=== PATIENT | male | born 1935 | race Caucasian/White ===

== ENCOUNTER → 2019-08-05 | Outpatient (CLI) | payer MEDICARE | END | disposition home or self-care (01) | LOC: RAH 16:19 | PROVIDERS: ATTEND Physical Medicine & Rehabilitation | DX: S83.192A Other subluxation of left knee, initial encounter (principal); M17.12 Unilateral primary osteoarthritis, left knee; X58.XXXA Exposure to other specified factors, initial encounter; Y93.89 Activity, other specified; Y92.89 Other specified places as the place of occurrence of the external cause; Y99.8 Other external cause status | CPT/HCPCS: 73562 ==

== ENCOUNTER 2021-04-23 06:41 | Day surgery (SDC) | payer MEDICARE ==
[2021-04-19 14:40] LABS: BASOPHILS % (AUTO) 0.5 % (0.0-5.0); EOSINOPHILS % (AUTO) 3.9 % (0.0-8.0); HEMATOCRIT 41.1 % (42-54); LYMPHOCYTES % (AUTO) 32.5 % (21.0-51.0); MEAN CORPUSCULAR HEMOGLOBIN 30.8 pg (27.0-33.0); MEAN CORPUSCULAR HGB CONC 32.1 g/dL (32.0-36.0); NEUTROPHILS % (AUTO) 55.9 % (40.0-77.0); PLATELET COUNT (AUTO) 194 K/uL (130-400); RED BLOOD CELL COUNT(AUTO) 4.28 MIL/uL (4.50-6.20); RED CELL DISTRIBUTION WIDTH 13.9 % (11.0-15.5); WHITE BLOOD COUNT (AUTO) 9.1 K/uL (4.8-10.8)
[2021-04-19 14:52] LABS: POTASSIUM 4.6 mmol/L (3.5-5.1)
[2021-04-19 14:55] LABS: INR 1.03 (0.85-1.15); PROTHROMBIN TIME 11.2 SEC (9.6-11.6)
[2021-04-19 14:56] LABS: PARTIAL THROMBOPLASTIN TIME 29.8 SEC (26.3-35.5)
[~2021-04-23] VITALS: Ht 175.3 cm; Wt 81.6 kg
[2021-04-23] VITALS (15 sets, daily range): BP systolic 115–161; BP diastolic 55–104
[~2021-04-23 06:41] MED LIST: ESOM20CA31 PO; LACTATED RINGERS 1000ML 1,000 ML IV SCH; LEVO75CA5 PO; MELO-108 PO; NINT100C PO; OMEGA 3 PO; ROPIVICAINE 250MG+KETOROLAC 15MG+EPINEPHRINE 0.3+CLONIDINE 80 IV PRN; ROSU20TA31 PO; TRANEXAMIC ACID 3,000 MG in SODIUM CHLORIDE IRRIG SOLUTION 250 ML TP SCH; UBID50CA23 PO
[2021-04-23] MEDS ORDERED: TRANEXAMIC ACID 1000MG/10ML ONE (07:09)
[2021-04-23] MEDS ORDERED: PROPOFOL 10 MG/ML 20ML VIAL IV ONE (07:58)
[2021-04-23] MEDS ORDERED: SUCCINYLCHOLINE CHLORIDE 20 MG/ML 10 ML VIAL ONE ×2 (07:58→08:15)
[2021-04-23] MEDS ORDERED: LIDOCAINE PF 100MG/5ML (2%) SYRINGE 5ML ONE ×2 (07:58→08:15)
[2021-04-23] MEDS ORDERED: ROCURONIUM 10MG/1ML SYR 10 MG/ML ML ONE (07:58)
[2021-04-23] MEDS ORDERED: ROPIVACAINE 0.5% 5MG/ML 30ML IJ ONE (08:15)
[2021-04-23] MEDS: CEFAZOLIN SODIUM 1 GM VIAL IVP SCH ×2 (08:25→14:00)
[2021-04-23] MEDS ORDERED: GLYCOPYRROLATE 1 MG/5 ML SYRINGE ONE (08:34)
[2021-04-23] MEDS ORDERED: NEOSTIGMINE 5MG/5ML SYR IV ONE (10:33)
[2021-04-23] MEDS ORDERED: ONDANSETRON 4MG INJ ONE (10:36)
[2021-04-23] MEDS ORDERED: PHENYLEPHRINE HCL 10 MG/ML 1ML VIAL IV ONE (10:36)
== END 2021-04-23 15:17 | disposition home or self-care (01) ==
LOC: DAH 06:41
PROVIDERS: ATTEND Orthopaedic Surgery
DX: M17.12 Unilateral primary osteoarthritis, left knee (principal); Z20.822 Contact with and (suspected) exposure to COVID-19; M11.262 Other chondrocalcinosis, left knee; I49.1 Atrial premature depolarization; K21.9 Gastro-esophageal reflux disease without esophagitis; I10 Essential (primary) hypertension; Z88.1 Allergy status to other antibiotic agents; Z79.82 Long term (current) use of aspirin; Z79.01 Long term (current) use of anticoagulants; Z79.899 Other long term (current) drug therapy; Z79.1 Long term (current) use of non-steroidal anti-inflammatories (NSAID); Z87.891 Personal history of nicotine dependence
CPT/HCPCS: 27447; 36415; 64447; 76942; 80048; 85025; 85610; 85730; 87635; 87641; 88305; 88311; 93005; A4215; A4221; A4222; A4223; A4649 ×4; A4663; A6212; A6260; C1776; C9803; J0171; J0330 ×2; J0690 ×2; J0735; J1885; J2001 ×2; J2370; J2405; J2704; J2710; J2795 ×2; J3490 ×2; J7030; J7120